=== PATIENT | female | born 1985 | race Caucasian/White ===

== ENCOUNTER 2016-12-10 12:30 | Emergency (ER) | payer MEDICAID, OTHER ==
[~2016-12-10] VITALS: Wt 86.5 kg
[~2016-12-10 12:30] MED LIST: AZIT250T94 PO; FAMO20TA18 PO
--- NOTE | 2016-12-10 15:06 | ERD ---
ER Documentation Chief Complaint Date/Time DATE: 12/10/16 TIME: 14:54 Chief Complaint left sided headache/shoulder pain since am, no neurodeficits HPI 31 y/o female presents to ED for left-sided facial/head pain for the past 3 weeks. Pain was described as sharp non-radiating with pain rate of 2/10 at this time but 10/10 yesterday. She also stated that her left-sided facial pain was much more painful whenever she presses on it. Added that she has mild left neck pain on range of motion and tenderness to palpation; also reports left shoulder pain for about 3 weeks on range of motion and tenderness to palpation. Stated her headache started gradually with no specific or exact time of onset. Also reports mild cough for the past 3 days, felt like that she has a fever the other day but never took her temperature. Denies headache trauma, that this is the worst headache of her life, loss of consciousness, dizziness, blurry vision, changes in vision, photophobia, ear pain, throat pain, difficulty swallowing, chest pain, hemoptysis, abdominal pain , back pain, loss of appetite, nausea, vomiting, hematochezia, diarrhea, constipation, urinary symptoms, , the possibility of being , bladder and bowel incontinences, extremity weakness, extremity tenderness, numbness or tingling sensation, difficulty walking, recent travel, recent exposure to illness, recent antibiotic use in the last 3 months. Allergy: NKA PMH: Denies. Family medical history: Denies family history of cardiac disease, stroke, sudden before the age of 50, heart attack before age 50. AO LMP: 11/01/2016 Medications: Tylenol. Surgery: Denies. Social: Not working at this time. Denies smoking, use of alcohol, use of illegal drugs. ROS All systems reviewed and are negative except as per history of present illness. Medications Home Meds Active Scripts Ondansetron (Ondansetron Odt) 4 Mg Tab.rapdis, 4 MG PO Q6H Y for NAUSEA AND/OR VOMITING for 7 Days, TAB Prov:SOPHIA MCINTYRE F 12/10/16 Ibuprofen* (Motrin*) 600 Mg Tab, 600 MG PO Q6H Y for PAIN AND OR ELEVATED TEMP, #30 TAB Prov:SOPHIA MCINTYRE 12/10/16 Amoxicillin/Potassium Clav (Amox-Clav 875-125 mg Tablet) 875-125 mg Tab, 1 TAB PO BID for 7 Days, #14 TAB Prov:SOPHIA MCINTYRE 12/10/16 Azithromycin* (Zithromax*) 250 Mg Tablet, 250 MG PO .CARMINE DIRECTED, #6 TAB TAKE 500 MG (2 TABS) THE FIRST DAY THEN 250 MG (1 TAB) DAYS 2-5 Prov:BRAYDEN CLARK 09/08/16 Famotidine* (Famotidine*) 20 Mg Tablet, 20 MG PO BID, #60 TAB Prov:BRAYDEN CALRK 09/08/16 Allergies Allergies: Coded Allergies: No Known Allergy (Unverified , 10/14/15) PMhx/Soc History of Surgery: Yes (cholecystectomy) Anesthesia Reaction: No Hx Neurological Disorder: No Hx Respiratory Disorders: No Hx Cardiac Disorders: No Hx Psychiatric Problems: No Hx Miscellaneous Medical Probl: No Hx Alcohol Use: No Hx Substance Use: No Hx Tobacco Use: No Smoking Status: Never smoker Physical Exam Vitals Vital Signs Date Time Temp Pulse Resp B/P Pulse Ox O2 Delivery O2 Flow Rate FiO2 12/10/16 15:29 98.1 78 18 129/67 100 Room Air 12/10/16 12:37 97.6 86 18 134/70 100 Physical Exam CONSTITUTIONAL: Well-appearing; well-nourished; in no apparent distress.~ HEAD: Normocephalic; atraumatic.~ No visible or palpable masses. EYES: Conjunctiva clear, sclera non-icteric, EOM intact. PERRL Ears: Hearing intact. EACs clear, TMs non-bulging, non-inflamed, translucent & mobile, ossicles normal appearance, No obstructions, no erythema, no discharges Nose: No obstructions. No polyps. No external lesions. Mild congestion. No external lesions, septum and turbinates normal. No rhinorrhea. No discharges. Frontal sinus is tender to palpation. Maxillary sinus is tenderness to palpation. MOUTH: Moist mucous membranes, no lesion, no obstructions, no vesicles, no thrush TEETH: No obvious carries or periodontal diseases. No gingival inflammation, lesions, bleeding, discharge. Throat: Uvula in midline. Right tonsil is +2 with no erythema, no exudate. Left tonsil is +2 with no erythema, no exudate. Tolerating secretions well. Good gag reflex. Neck: Supple, without lesions, bruits, or adenopathy. No mass. Thyroid non- enlarged and non-tender to palpation. Mild tenderness and discomfort to left side of her neck with full range of motion (reproducing): No swelling/redness. Left shoulder has mild pain on range of motion (reproducing); no swelling/ tenderness/deformity. CHEST: Symmetrical chest. Respirations even and not labored. No retractions noted. CARDIOVASCULAR: Normal S1, S2. RRR. No murmurs, gallops. RESPIRATORY: Normal chest excursion with respiration; breath sounds clear and equal bilaterally; no wheezes, rhonchi, or rales. Breathing even and unlabored. Speaking in clear, full, and complete sentences w/ ease. ABDOMEN: Normal bowel sounds normal. Soft, round, non-distended, non-guarding, no tenderness, no rebound, no organomegaly, no masses, no pulsating abdominal mass. No hernia. No peritoneal signs. : NO CVA Tenderness. BACK: Symmetrical shoulder. Spine is midline without deformity, tenderness. No evidence of trauma or deformity. PELVIS: Stable pelvis. No evidence of trauma or deformity.~ MUSCULOSKELETAL: Normal gait and station. No misalignment, asymmetry, crepitation, defects, tenderness, masses, effusions, decreased range of motion, instability, atrophy or abnormal strength or tone in the head, neck, spine, ribs , pelvis or extremities. No calf tenderness. NEUROVASCULAR: Distal pulses are present. Pedal pulse are present, equal, and normal. Cap refills are < 2 seconds. NEUROLOGIC: Alert and oriented x4. Speaks full and clear sentences. Cranial Nerves II-XII normal. Sensation to pain, touch, and proprioception normal. Grossly unremarkable. No neurologic deficits. Romberg test is negative. PSYCHOLOGICAL: The patients mood and manner are appropriate. No hallucinations , delusions. Not SI. Not HI. Has the capacity to decide for himself/herself. SKIN: Normal for age and ethnicity; warm; dry; good turgor; no apparent lesions or exudates. No rashes, hives, discoloration. Intact. Procedures/MDM Examination: Unremarkable examination except frontal and maxillary sinus tenderness on palpation. No unilateral deficits. No neurologic deficit. Has good range of motion of neck and spine without difficulty/discomfort/pain. Disease process, medical treatment was explained to the patient and family member. They verbalized understanding and agreed with the diagnostic tests, medical treatment, and follow-up care. Treatment: Physical exam. Evaluation. Re-evaluation: No neurologic deficits. Consultation: None. Differential diagnosis: Meningitis versus subarachnoid hemorrhage versus migraine versus sinus headache versus sinusitis versus clinical sinusitis versus musculoskeletal pain Medical decision [id number] y/o female presents to ED for left-sided facial/ head pain for the past 3 weeks. Pain was described as sharp non-radiating with pain rate of 2/10 at this time but 10/10 yesterday. She also stated that her left-sided facial pain was much more painful whenever she presses on it. Added that she has mild left neck pain on range of motion and tenderness to palpation ; also reports left shoulder pain for about 3 weeks on range of motion and tenderness to palpation. Stated her headache started gradually with no specific or exact time of onset. Also reports mild cough for the past 3 days, felt like that she has a fever the other day but never took her temperature. Patient's complaint, patient's history, my physical findings are consistent with my final diagnosis of clinical sinusitis. Medications prescribed are the following: Motrin. Augmentin. Zofran. Patient and family member are made aware of the side effects and adverse reactions of the medications prescribed. Instructed on when to seek emergent and medical attention in case allergic/anaphylactic reactions or severe side effects and or adverse reactions to medications. Patient and family member verbalized understanding. Patient instructed Instructed to follow-up with his PCP in 24-48 hours. Instructed to Call 911 for chest pain, shortness of breath. Advised to come back here in ED as soon as possible for severity of symptoms which includes but not limited to: any new symptoms; shortness of breath/difficulty of breathing; cardiovascular changes; severe gastrointestinal symptoms; signs and symptoms of bleeding and or infection; signs of compartment syndrome/neurovascular changes; neurological changes/deficits. Patient and family member verbalized understanding. Upon discharge, patient is alert and oriented x 4, speaks full and clear sentences, denies pain, has no neurological deficits, has no neurovascular deficits, difficulty of breathing. Breathing even and unlabored. Lung sounds are clear to auscultation. Not in distress. Appears comfortable. Ambulatory with steady gait. Appears satisfied with care provided here in ED. Departure Diagnosis: Primary Impression: Head and face pain Additional Impression: Musculoskeletal chest pain Condition: Good Additional Instructions: Follow-up with PCP in the next 24-48 hours. SOPHIA MCINTYRE Dec 10, 2016 15:06
[2016-12-10] MEDS ORDERED: IBUP-1542 PO (15:07)
[2016-12-10] MEDS ORDERED: AMOX1TAB10 PO (15:07)
[2016-12-10] MEDS ORDERED: ONDA4TAB14 PO (15:08)
[2016-12-10 15:29] VITALS: BP 129/67; PULSE 78; RESP 18; TEMP 98.1
== END 2016-12-10 15:29 | disposition home or self-care (01) ==
LOC: FTE 12:30
DX: R51 Headache (principal); R07.89 Other chest pain
CPT/HCPCS: 99284